=== PATIENT | male | born 1970 | race Caucasian/White ===

== ENCOUNTER 2024-01-08 21:54 | Emergency (ER) | payer OTHER, SELFPAY ==
[2024-01-08 22:01] VITALS: BP 123/86
[2024-01-08 22:08] VITALS: BP 116/90; BMI 24.1
[2024-01-08] MEDS: NSS 1000 IV (22:22)
[2024-01-08] MEDS: LOW STRENGTH ASPIRIN 324 MG PO (22:22)
[2024-01-08 22:24] LABS: % Basophils 0.4 % (0-2); % Eosinophils 1.2 % (0-6); % Immature Granulocytes 0.3 % (0-0.5); % Monocytes 10.9 % (1.7-9.3); % Neutrophils 67.2 % (42.2-75.2); Absolute Basophils 0.1 10^3/uL (0-0.2); Absolute Eosinophils 0.2 10^3/uL (0-0.7); Absolute Immature Granulocytes 0.1 10^3/uL (0-0.05); Absolute Lymphocytes 3.1 10^3/uL (1.2-3.4); Absolute Monocytes 1.7 10^3/uL (0.1-0.6); Absolute Neutrophils 10.5 10^3/uL (1.4-6.5); Hemoglobin 15.1 g/dL (13.0-18.0); Mean Corp Hgb Conc. 35.1 g/dL (33.0-37.0); Mean Corpuscular Hgb 30.6 pg (27.0-31.0); Mean Corpuscular Volume 87.2 fL (80.0-94.0); Nucleated Red Blood Cells % 0 % (-); Platelet Count 368 10^3/uL (130-400); Red Blood Cell Count 4.93 10^6/uL (4.70-6.10); Red Cell Dist. Width 13.1 % (11.5-14.5); White Blood Cell Count 15.7 10^3/uL (4.8-10.8)
[2024-01-08] MEDS: NITROSTAT (SUBLINGUAL) 0.400000000000000022 MG SL ×2 (22:24→22:40)
[2024-01-08 22:25] VITALS: BP 124/88
[2024-01-08] MEDS: HEPARIN 4000 UNITS IV (22:31)
[2024-01-08 22:34] VITALS: BP 108/73
[2024-01-08 22:37] LABS: ALT (SGPT) 21 U/L (0-50); AST (SGOT) 24 U/L (17-59); Albumin 4.2 g/dl (3.5-5.0); Alkaline Phosphatase 63 U/L (38-126); Blood Urea Nitrogen 13 mg/dl (9-20); Calcium 9.4 mg/dl (8.4-10.2); Carbon Dioxide 25 mmol/L (22-30); Chloride 105 mmol/L (98-107); Estimated Creatinine Clearance 101 ml/min; Glucose 108 mg/dl (70-99); Potassium 4.2 mmol/L (3.5-5.1); Sodium 135 mmol/L (135-145); Total Bilirubin 0.8 mg/dl (0.2-1.3); Total Protein 6.6 g/dl (6.3-8.2); eGFR > 60.00
[2024-01-08 22:47] VITALS: BP 114/73
[2024-01-08 22:48] LABS: Troponin I < 0.012 ng/ml
--- NOTE | 2024-01-08 22:52 | EDRN ---
this HARD METALS ENGRAVER HAND spoke with ER Dr Nam and notified her that after 2 SL Nitroglycerin tablets per EMAR order the pts chest pain rating is still 3/10 however his troponin is negative. Per ER Dr Nam verbal order, do not give this pt any more Nitroglycerin
at this time.
[2024-01-08 23:03] LABS: APTT 36.9 Sec (23.4-35.0)
[2024-01-08 23:30] VITALS: BP 128/91
--- NOTE | 2024-01-08 23:43 | ED.GENMED ---
History of Present Illness
General
Chief Complaint: Chest Pain
Source: patient and previous hospital records (Hospitalization October 2021 for persistent chest pain, non-STEMI with peak troponin of 12.2. Underwent PTCA with stent of the RCA.)
Exam Limitations: none
Time Seen by Provider: 01/08/24 22:20
Nursing documentation reviewed up to this point in time: agreed with
Travel History
Have you had any contact with someone who has COVID-19?: No
Do you have any symptoms of coronavirus? Fever > 100 degrees, chills, cough, shortness of breath, sore throat, loss of taste or smell, muscle aches, or headache?: No
History of Present Illness
History of Present Illness:
This is a 53-year-old gentleman with history of CAD who suffered a non-STEMI in October 2021 and underwent PTCA with stent to the right coronary artery at that time. He admits to neglecting follow-up with cardiology with last appointment with .
Vincenzo was perhaps over 1 year ago.
Maintained on metoprolol, atorvastatin, low-dose aspirin and admits to sporadic compliance with this generally taking these 3 times to 4 times per week.
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
with waves of increased pain with certain movements and increased pain with cough. He does admit to rare occasional cough but denies increased cough, no fever no chills, no shortness of breath nor dyspnea on exertion.
He did initially go to work at 7 AM but then returned home within 1 hour due to not feeling well.
He went to his chiropractor today and had an adjustment with improvement in left shoulder pain but chest discomfort persists. He did take 1 sublingual nitroglycerin this morning without relief. He admits that the nitroglycerin was original
prescription from 2021. Prior to today he has never taken nitroglycerin.
He denies leg pain or swelling.
Weight has been stable over the past year with approximately 10 to 20 pound unintentional weight loss 2 years ago.
He denies nausea nor vomiting, no difficulty swallowing, no abdominal nor back pain.
Past History
Past History
ED Past Medical History: CAD, GERD, HTN, Hypercholesterolemia and MA (Non-STEMI October 2021)
ED Past Surgical History: Cardiac (PTCA with stent right coronary artery October 2021)
Social History
Tobacco: Smoker
Alcohol: None
Drug: Marijuana
Personal:
Living: with family
Employment: Employed
Family History
Family History: CAD (Father, ) and Cancer (Mother with history of breast cancer, lung cancer, thyroid cancer)
Phy Exam
Physical Exam
Physical Exam:
GENERAL: 53-year-old gentleman appears his stated age, awake and alert, pleasant, appears in no acute distress. is accompanying. Moderate odor of tobacco about the patient.
EYE: pupils equal and reactive. anicteric
NECK: Supple, nontender, no meningismus, no significant adenopathy.
ENT: oral mucosa is moist. No rhinorrhea.
CARDIAC: Regular rate and rhythm. no murmur.
LUNGS: Clear breath sounds bilaterally, no acute respiratory distress, no wheezes/rales/rhonchi
ABDOMEN: Soft, nondistended, without focal tenderness, no r/g, no cvat. normoactive BS.
NEUROLOGICAL: Alert and oriented x3, no focal neuro deficits.
SKIN: Warm and dry, normal color, skin intact. No rash. Palmar aspects of the hands have moderate chronically embedded dirt.
MUSCULOSKELETAL: No C/C/E. peripheral pulses are full and equal b/l. No palpable tenderness.
PSYCH: Normal and appropriate interaction.
Scores
Heart Score for Chest Pain Patients
STEMI patient?: No
History: Moderately Suspicious
ECG: Normal
Age: >45 - <65 years
Risk Factors: >/= 3 Risk Factors or History of CAD
Troponin: </= Normal Limit
Heart Score for Chest Pain Patients: 4
Heart Score Risk: 20.3% MACE over next 6 weeks
Course
Orders/Labs/Results
Orders:
Orders
01/08/24 21:55
Electrocardiogram (*1) Urgent
Reason for Study: Chest Pain
EKG- Treatment ONCE
01/08/24 22:13
Cardiac Monitoring- Treatment ONCE
01/08/24 22:17
Complete Blood Count/With Diff Urgent
Comprehensive Metabolic Panel Urgent
Troponin I Urgent
01/08/24 22:20
Aspirin Chewable [Low Strength Aspirin] 324 mg .ROUTE .STK-MED ONE
Nitroglycerin Sublingual [Nitrostat (Sublingual)] 0.4 mg .ROUTE .STK-MED ONE
01/08/24 22:21
Aspirin Chewable [Low Strength Aspirin] 324 mg PO NOW STA
Nitroglycerin Sublingual [Nitrostat (Sublingual)] 0.4 mg SL [id number] PRN
01/08/24 22:28
Heparin 4,000 units IV NOW STA
Heparin 5,000 units .ROUTE .STK-MED ONE
01/08/24 22:32
Nitroglycerin Ointment [Nitro-Bid] 1 inch .ROUTE .STK-MED ONE
01/08/24 22:33
0.9% Sodium Chloride 1000 ml [Nss] 1,000 ml IV BOLUS
01/08/24 22:46
PTT Urgent
01/08/24 22:55
CT Chest Pe Study Urgent
Comment:
Reason For Exam: acute SSCP worse w cough
01/08/24 23:45
EKG- Treatment ONCE
01/09/24 00:01
Electrocardiogram (*1) Urgent
Reason for Study: Chest Pain
01/09/24 00:28
Troponin I Urgent
01/09/24 01:14
Ketorolac [Toradol] 15 mg IV NOW STA
Abnormal Lab Results
01/08/24 01/08/24
22:17 22:46
WBC 15.7 H 10^3/uL
(4.8-10.8)
Abs Immat Gran (auto) 0.1 H 10^3/uL
(0-0.05)
Absolute Neuts (auto) 10.5 H 10^3/uL
(1.4-6.5)
Absolute Monos (auto) 1.7 H 10^3/uL
(0.1-0.6)
Lymphocytes % 20.0 L %
(20.5-51.1)
Monocytes % 10.9 H %
(1.7-9.3)
APTT 36.9 H Sec
(23.4-35.0)
Glucose 108 H mg/dl
(70-99)
01/08/24 22:17
01/08/24 22:17
Vital Signs
Initial and Last Documented VS:
Initial Vital Signs
Temp Pulse Resp BP Pulse Ox
98.5 F 78 16 123/86 99
01/08/24 22:01 01/08/24 22:01 01/08/24 22:01 01/08/24 22:01 01/08/24 22:01
Last Documented Vital Signs
Temp Pulse Resp BP Pulse Ox
98.5 F 68 20 123/85 96
01/08/24 22:01 01/09/24 02:15 01/09/24 02:15 01/09/24 02:04 01/09/24 02:15
MDM/Problems Addressed
Differential Diagnosis Includes:
Concern for ACS/unstable angina, other consideration is chest wall pain, GERD, pneumonia, PE.
EKG is similar and unchanged from previous October 20, 2021. No evidence of STEMI.
Labs are pending including troponin.
Will give 324 mg chewable aspirin as well as a sublingual nitroglycerin.
BP is mildly soft thus will initiate IV normal saline bolus.
Chronic conditions affecting care: HTN, CAD and Other (Hyperlipidemia, GERD)
*Radiology
Radiology exam reviewed: radiology read reviewed (CT of the chest/PE study is unremarkable.)
*Pulse Oximetry
Patient hypoxic: no
*EKG
Interpreted by ED Provider?: Yes
Comparison EKG: no changes (Unchanged from previous October 2021)
Rate: normal
Rhythm: sinus
[place]: normal axis
Interval: normal interval
QRS Pattern: normal QRS
Ischemia: other (Minimal early repolarization 2 and aVF, peaked T waves anteriorly, all similar and unchanged from previous October 20, 2021)
*Synthetic Department Supervisor Interpretation
Rate: normal
Interpretation: normal
Rhythm: sinus
*Critical Care Note
Total Time (30-74mins, 75-104mins- exclusive of procedures): Not Applicable
Update Note
Update Note:
Patient reports moderate relief of chest pain after 1 sublingual nitroglycerin. Will continue with additional dose and given IV bolus of heparin.
01/08/2024 22:30 PM
Patient has had no further relief after additional nitroglycerin.
Troponin has returned negative. With ongoing chest pain throughout the day and negative troponin, ACS is less likely but not completely ruled out.
With somewhat pleuritic aspect of chest pain, worse with cough will check CT of the chest/PE study.
Will plan to repeat troponin at midnight.
01/09/[address] of the chest/PE study is unremarkable. No PE nor aneurysm nor dissection.
Troponin is again negative, unchanged.
EKG is similar and unchanged as well.
Patient is pain-free and comfortable after small IV dose of Toradol.
I suspect chest wall pain, other consideration is GERD.
With reassuring/negative troponins will discharge to home with recommendation for prompt follow-up with religion teacher, Dr. Loya. Will refer to our chest pain hotline.
Recommend he continue his regular medications taking these on a daily basis.
Return precautions discussed.
ED Attending Note
-
Portions of this chart may have been created with voice recognition software.� Occasional wrong word or��sound alike� substitutions may have occurred due to the inherent limitations of voice recognition software.
Discharge Plan
Departure
Patient Disposition: Home (Routine Discharge)
Date of Disposition: 01/09/24
Time of Disposition: 02:20
Patient with high blood pressure during this ER visit?: No
Condition: Good
Discharge Problem:
Nonspecific chest pain
Instructions: Chest Pain CBC Follow Up
Prescriptions:
New
nitroglycerin 0.4 mg tablet, sublingual
0.4 mg sublingual Q5-15M PRN (Reason: chest pain) Qty: 20 0RF
No Action
aspirin 81 MG tablet,chewable
81 mg PO DAILY 0RF
metoprolol succinate 25 MG tablet extended release 24 hr
25 mg PO DAILY Qty: 90 5RF
atorvastatin 80 MG tablet
80 mg PO DAILY
Referrals:
Tuan Loya MD [Active] - Call in 1-3 days for appt
Tristan Armenta MD [Family Provider] -
Interventions
Interventions:
*Risk Screen - Suicide Last Done: 01/08/24 22:09
*General Assessment Last Done: 01/08/24 22:09
*Neglect/Abuse Screening Last Done: 01/08/24 22:09
ED- Fall Risk Assessment Last Done: 01/09/24 02:34
*ED COVID-19 Vaccine History Last Done: 01/08/24 22:09
*Nursing Disposition Last Done: 01/09/24 02:34
ED- Cardiac Assessment Last Done: 01/08/24 22:42
Discharge Date and Time
Discharge Date/Time: 01/09/24 02:36
Print Language: NIGERIAN
[2024-01-09] VITALS: BP 114/84
[2024-01-09 00:59] LABS: Troponin I < 0.012 ng/ml
[2024-01-09] MEDS: TORADOL 15 MG IV (01:30)
[2024-01-09 02:04] VITALS: BP 123/85
== END 2024-01-09 02:36 | disposition home or self-care (01) ==
LOC: EMR 21:54
PROVIDERS: EMERGENCY PHYSICIAN Emergency Medicine; FAMILY PHYSICIAN Family Medicine
DX: R07.89 Other chest pain (principal); I25.10 Atherosclerotic heart disease of native coronary artery without angina pectoris; K21.9 Gastro-esophageal reflux disease without esophagitis; I10 Essential (primary) hypertension; E78.00 Pure hypercholesterolemia, unspecified; I25.2 Old myocardial infarction; F17.200 Nicotine dependence, unspecified, uncomplicated; Z80.1 Family history of malignant neoplasm of trachea, bronchus and lung; Z82.49 Family history of ischemic heart disease and other diseases of the circulatory system; Z95.5 Presence of coronary angioplasty implant and graft
CPT/HCPCS: 99284; 96374 ×2; 96361; 71275; 80053; 84484; 85025; 85730; 93005; Q9967

== ENCOUNTER → 2025-04-12 13:10 | Outpatient (REF) | payer BC, SELFPAY | LOC: HWRCS 13:10 | PROVIDERS: ATTENDING PHYSICIAN Nurse Practitioner; FAMILY PHYSICIAN Nurse Practitioner | DX: R06.02 Shortness of breath (principal); I25.10 Atherosclerotic heart disease of native coronary artery without angina pectoris; Z72.0 Tobacco use | CPT/HCPCS: 93306 ==

== ENCOUNTER → 2025-04-16 12:15 | Outpatient (REF) | payer BC, SELFPAY | LOC: HWRCS 12:15 | PROVIDERS: ATTENDING PHYSICIAN Nurse Practitioner; FAMILY PHYSICIAN Nurse Practitioner | DX: R06.02 Shortness of breath (principal); I25.10 Atherosclerotic heart disease of native coronary artery without angina pectoris; Z72.0 Tobacco use | CPT/HCPCS: 78452; 93017; A9500; J2785 ==

== ENCOUNTER → 2025-05-07 11:20 | Outpatient (REF) | payer BC, SELFPAY | LOC: RAD 11:20 | PROVIDERS: ATTENDING PHYSICIAN Internal Medicine Cardiovascular Disease; FAMILY PHYSICIAN Nurse Practitioner | DX: R06.02 Shortness of breath (principal) | CPT/HCPCS: 71046 ==

== ENCOUNTER 2025-05-12 07:16 | Day surgery (SDC) | payer BC, SELFPAY ==
[2025-05-07 10:48] VITALS: BMI 25.6
[2025-05-07 11:31] LABS: Hematocrit 41.4 % (39.0-52.0); Hemoglobin 14.4 g/dL (13.0-18.0); Mean Corp Hgb Conc. 34.8 g/dL (33.0-37.0); Mean Corpuscular Volume 89.8 fL (80.0-94.0); Nucleated Red Blood Cells % 0 % (-); Platelet Count 310 10^3/uL (130-400); Red Cell Dist. Width 12.7 % (11.5-14.5)
[2025-05-07 12:00] LABS: ALT (SGPT) 21 U/L (0-50); AST (SGOT) 23 U/L (17-59); Albumin 4.1 g/dl (3.5-5.0); Alkaline Phosphatase 57 U/L (38-126); Blood Urea Nitrogen 14 mg/dl (9-20); Calcium 9.4 mg/dl (8.4-10.2); Carbon Dioxide 27 mmol/L (22-30); Chloride 106 mmol/L (98-107); Estimated Creatinine Clearance 114 ml/min; Glucose 105 mg/dl (70-99); Potassium 4.8 mmol/L (3.5-5.1); Sodium 137 mmol/L (135-145); Total Protein 6.6 g/dl (6.3-8.2); eGFR > 60.00
--- NOTE | 2025-05-07 13:41 | HPS.HSE ---
Family Physician
-
Family Physician: Deana Mabry
Chief Complaint
-
Coronary artery disease. Shortness of breath. Abnormal stress test.
History of Present Illness
The patient is a 54 year old male with a history of coronary artery disease. He experienced a NSTEMI in October 2021 and ultimately underwent a PCI with RCA stent. His LAD and left circumflex arteries were without significant disease.
Since then, he has had minimal follow-up with cardiology. He does report more recent shortness of breath with exertion. He notices his shortness of breath primarily when chasing after his grandson. He denies chest discomfort. He continues to smoke
approximately 3 packs of cigarettes a week. He reportedly stopped all of his advised cardiac medications at least 1 year ago. He was advised to restart a daily baby Aspirin and Atorvastatin. He did receive a script for sublingual nitroglycerin in
the event chest pain presents. A nuclear stress test on 04/16/2025 revealed a small, partially reversible area of decreased perfusion in the basal to mid inferior and inferolateral perdue, consistent with infarct and haily-infarct ischemia. Given
these results, he will now undergo a left cardiac catheterization for further symptom evaluation. He denies any current complaints today such as chest pain, shortness of breath at rest, nausea, vomiting, diarrhea, lightheadedness, dizziness, cough,
sore throat, or fever.
Medical History
Past Medical History
Past Medical History: Reports Other
Additional Past Medical History:
1. Coronary artery disease/NSTEMI, 10/2021, status post PCI with RCA stent.
2. Hypertension, diet controlled.
3. Hyperlipidemia.
4. Nonsustained ventricular tachycardia.
5. GERD.
6. Colon polyps.
7. Remote headaches.
8. History of medical non-compliance.
9. Current tobacco abuse.
10. Chronic, mild leukocytosis likely secondary to the above.
Past Surgical History: Reports Other
Additional Past Surgical History:
1. PCI with RCA stent.
2. Right ring finger surgery.
3. Colonoscopy.
4. Endoscopy.
Social History
Tobacco: Smoker (He is a current 3 pack per week cigarette smoker. He has been smoking for over 20 years.)
Alcohol: None
Living: Alone (in a 2 story home. His home has a first floor main setup. )
Family History
Family History: Not pertinent
Allergies / Home Medications
Allergy/Medication List:
Home medications:
1. Aspirin 81 mg p.o. daily.
2. Atorvastatin 80 mg p.o. daily.
3. Nitroglycerin 0.4 mg sublingual every 5-15 minutes as needed (maximum 3 doses).
Allergies: No known allergies.
Review of Systems
-
A 12 point ROS was completed and negative except as noted: Yes
Physical Exam
Vital Signs
Blood pressure 118/75. Heart rate 62. Respirations 18. Pulse ox 98% on room air.
Height 5 feet, 7 inches. Weight 74 kg. BMI 25.6.
Physical Exam
General: Well Developed, Well Nourished and No Apparent Distress
HEENT: NormoCephalic, Moist mucous membranes, Atraumatic and PERRLA
Respiratory: Clear
Cardiac: Regular Rhythm
GI: Soft, Non Tender and Non Distended
Musculoskeletal: No Edema and Normal Gait & Station
Skin: Warm and Dry
Neuro: AO x 3 and Nonfocal/grossly intact
Laboratory Results
-
05/07/25 10:52
05/07/25 10:52
Laboratory Results
Total Bilirubin 0.5 mg/dl (0.2-1.3) 05/07/25 10:52
AST 23 U/L (17-59) 05/07/25 10:52
ALT 21 U/L (0-50) 05/07/25 10:52
Alkaline Phosphatase 57 U/L (38-126) 05/07/25 10:52
EKG 05/07/2025: Normal sinus rhythm.
Nuclear stress test 04/16/2025: Small, partially reversible area of decreased perfusion in the basal to mid inferior and inferolateral perdue. Consistent with infarct and haily-infarct ischemia. Inconclusive ECG for ischemia given the pharmacological
study. Systolic function is normal. The ejection fraction is 61%. Stress Risk is moderate risk study (1 - 3% VT or /year) due to pharmacologic agent used.
Echocardiogram 04/12/2025: Normal biventricular size and systolic function without regional wall motion abnormality. Left ventricular ejection fraction is 60%. Mild concentric left ventricular hypertrophy. No significant valvular disease. No change
compared to prior echocardiogram in 2021.
Impression/Plan
-
IMPRESSION/PLAN:
1. Coronary artery disease, shortness of breath, abnormal stress test: The patient is in need of a left cardiac catheterization with Dr. Chacho Staton on 05/12/2025. The benefits and risks of the procedure have been explained to the patient. The
patient understands these risks and wishes to proceed. He is aware to continue his daily baby Aspirin up to and including the morning of his procedure.
2. Current tobacco abuse: Smoking cessation education was provided to the patient pre-operatively. The patient is aware of the adverse cardiovascular effects with continued tobacco use. He reportedly is cutting down on his tobacco use and hopes to
be off tobacco altogether in the near future.
[2025-05-12] VITALS (32 sets, daily range): BP systolic 129–188; BP diastolic 88–118; BMI 25.4
[2025-05-12] MEDS: LOW STRENGTH ASPIRIN 81 MG PO (08:24)
[2025-05-12] MEDS: NSS 221 ML IV (08:25)
[2025-05-12 10:03] LABS: ACT-LR - POC 335 Seconds (116-155)
[2025-05-12 10:25] LABS: ACT-LR - POC 377 Seconds (116-155)
[2025-05-12 10:45] LABS: ACT-LR - POC 332 Seconds (116-155)
--- NOTE | 2025-05-12 10:54 | PTCARENOTE ---
Received pt from procedure room c/o chest pain 5/10 after received NTG spray in procedure room. Pt's blood pressure is 166/99. Dora UNDERWRITING ANALYST aware and ordered to give NTG spray for chest pain as ordered. NTG spray given as ordered.
[2025-05-12] MEDS: NSS 1000 IV (10:55)
--- NOTE | 2025-05-12 10:59 | ITS.CL.ANGIO ---
Fruit Rancher - Angioplasty
Angioplasty
Procedure Report:
CARDIAC CATHETERIZATION REPORT
Date of Procedure: 05/12/2025
Referring: COMPA Wei
INDICATION: New onset/accelerating/unstable angina, known coronary artery disease.
PROCEDURE:
1. Left heart catheterization
2. Coronary angiography.
3. Successful IFR of the proximal/mid LAD.
4. Successful IVUS guided PCI of the proximal/mid LAD.
A total of 64 minutes of procedural/moderate sedation was utilized. An independent medical affairs manager was present to assist with and help manage the patient's level of consciousness and physiologic status.
ACCESS:
1. 6 [place] right radial artery using modified Seldinger technique.
CATHETERS:
1. 5 [place] JR4.
2. 5 [place] JL 3.5.
3. 6 [place] EBU 3.5 guiding catheter.
HEMODYNAMIC DATA
Weight (kg): 73.5
AO (s/d/x, mmHg): 122/79/99
LV (s/x mmHg): 122/14
LEFT VENTRICULOGRAPHY: Not performed.
CORONARY ANGIOGRAPHY
Dominance: Right.
Left Main: Normal size, trifurcating vessel. There is no coronary artery disease.
LAD: Large size vessel giving rise to 1 large diagonal before wrapping around the apex and supplying the distal inferior wall and inferior septum. There is an underappreciated, 50+% lesion in the proximal/mid LAD, spanning the origin of the
diagonal.
[place]: Small to medium size vessel supplying the proximal anterolateral wall. There is no coronary artery disease.
Circumflex: Large size, nondominant vessel giving rise to 1 large obtuse marginal. The obtuse marginal gives rise to several daughter branches and is severely tortuous in its distal margin. There are minor luminal irregularities.
RCA: Normal size, dominant vessel. Patent stents are visible in the proximal vessel. There is no evidence of in-stent restenosis.
INTERVENTION(S)
1. Successful IFR of the 50+% proximal/mid LAD lesion, demonstrating occlusive disease (iFR = 0.88).
2. Successful IVUS guided PCI of the occlusive 50+% proximal/mid LAD lesion (Medtronic [place] 3.5 x 30 AJ, postdilated with a 3.5 NC balloon) with reduction in stenosis to 0%, maintaining KAEL-3 flow.
Narrative:
The decision was made to perform physiologic testing. The diagnostic catheter was removed over a wire and exchanged for a(n) 6 [place] EBU 3.5 guiding catheter. The guiding catheter was advanced into the ascending aorta and seated in the left main
coronary artery. Additional heparin was given to obtain an ACT greater than 250 seconds. An iFR wire was zeroed outside of the body, then inserted into the guiding sheath. The wire was advanced and the transducer was normalized just outside of the
guiding catheter tip. The wire was advanced into the mid LAD, beyond the 50% lesion. Three iFR measurements were taken. The lesion was determined to be occlusive (0.88). Slow pullback was performed to ensure that there was no significant drift.
The wire returned to a normal 1.0 reading at the left main coronary artery/catheter tip, confirming the severity of the stenosis.
The decision was made to perform intracoronary imaging. The IFR wire was disconnected from the console and redirected into the large diagonal for protection. A power turn flex wire was advanced into the distal LAD. An IVUS catheter was advanced
through the guiding catheter and into the ostium of the artery. Ring down was performed once the imaging crystal was no longer inside of the guiding catheter. The IVUS catheter was advanced into the mid LAD, beyond the diseased segment.
Intravascular ultrasound was performed in a retrograde fashion using a slow pullback. Intracoronary imaging demonstrated significant atherosclerosis with a notable, discrete lesion immediately distal to the origin of the first diagonal with plaque
extending into the proximal LAD. This lesion was not well appreciated on angiography. Vessel sizing was performed.
The IVUS catheter was withdrawn and the occlusive proximal/mid LAD lesion was predilated with a 3.0 x 15 noncompliant balloon to 12 katie. The noncompliant balloon was removed and a Medtronic [place] Athelstane 3.5 x 30 drug-eluting stent was advanced. The
stent was deployed at 12 atmospheres. The stent balloon was removed. A 3.5 x 20 noncompliant balloon was advanced into the stent and the stent was postdilated to 15 atmospheres.
the noncompliant balloon was withdrawn and IVUS was repeated. This demonstrated excellent stent apposition throughout the entire stented segment with some mild underexpansion in the midportion. The decision was made to swap the LAD and diagonal
wires and postdilate more aggressively. The power turn flex wire was withdrawn into the proximal stent, however would not advance into the diagonal due to deformation of the wire tip. The wire was withdrawn and a whisper wire was advanced into the
LAD then into the stented segment. The wire was able to easily traverse the stent struts into the diagonal. The IFR wire was then withdrawn from behind the stent struts and redirected into the LAD proper. The 3.5 x 20 noncompliant balloon was
readvanced. The proximal and midportion of the stent were postdilated to 18 katie. The noncompliant balloon was withdrawn.
The patient did complain of some chest discomfort that was likely due to a combination of severe hypertension (systolic blood pressure of 190) and pericardial stretch pain. Angiography had confirmed that there was no vessel occlusion and KAEL-3
flow in all arteries. The patient was given sublingual nitroglycerin with some relief.
Angiography was performed in orthogonal views, confirming good stent expansion and an excellent angiographic result. The coronary wire was withdrawn and the guide was disengaged from the artery. The catheter was removed over a standard J-wire.
Closure Device: Vascular band.
Radiation (mGy): 522.91
DAP (cm2.Gy): 42.6836
Fluoroscopy time (minutes): 17.2
CONCLUSIONS
1. Right dominant circulation with luminal irregularities in the circumflex, patent stents in the proximal RCA with no evidence of ISR and an underappreciated, occlusive 50% proximal/mid LAD lesion (iFR = 0.88) status post successful IVUS guided
PCI (Medtronic [place] 3.5 x 30 AJ, postdilated with a 3.5 NC balloon) with reduction in stenosis to 0%, maintaining KAEL-3 flow.
2. Mildly elevated filling pressures (LVEDP = 14 mmHg at 73.5 kg).
3. Chest discomfort, likely due to combination of severe hypertension and pericardial stretch pain.
RECOMMENDATIONS:
1. Expectant management after cardiac catheterization via right radial approach.
2. Limited weight bearing on the right wrist for one week.
3. Dual antiplatelet therapy with aspirin and clopidogrel for at least 12 months, followed by aspirin indefinitely.
4. Aggressive secondary prevention with high-dose, high potency statin. Goal LDL <55.
5. OMT/GDMT as hemodynamics will tolerate. The patient was quite hypertensive in the Fruit Rancher towards the end of the procedure. Start carvedilol 6.25 mg twice daily.
6. Referral to cardiac rehab.
Copy to: Tuan Loya M.D., COMPA Wei, COMPA Chappell
Chacho Staton DO, FACC, FACP
[2025-05-12] MEDS: NITROLINGUAL SPRAY 1 BOTTLE SL ×2 (11:10→11:15)
[2025-05-12] MEDS: NITROLINGUAL SPRAY SL (11:15)
[2025-05-12] MEDS: COREG 6.25 MG PO (11:37)
--- NOTE | 2025-05-12 11:40 | PTCARENOTE ---
2nd NTG spray given at 1115 as ordered for chest pain rated 4/10. Pt states pain decreased to 2/10 at this time. Pt's blood pressure 167/107. Coreg given as ordered for high blood pressure. Will continue to monitor.
[2025-05-12] MEDS: TYLENOL 650 MG PO (11:41)
--- NOTE | 2025-05-12 13:37 | W.PN.UPDATE ---
Update Note
Progress Note Update
Pt seen post LAD PCI w/1 AJ. Right radial site without ht/bleeding, non tender. Post EKG NSR 63, no vt/arrhythmia, no acute changes. Chest pressure during procedure and after with good reponse to SL NTG x2, now rates pain 0-1/10. BP elevated
160s/100s, with marginal response to NTG. Started carvediolol 6.25mg BID, with good BP lowering effect to 140s/90s. He is comfortable now and chest pain free.
Pt understands importance of uninterrupted DAPT w/asa, plavix. Cardiac rehab consulted. [facility]up at [facility] as scheduled.
Tobacco abuse noted, cessation strongly encouraged. Pt agreeable to Nicoderm patch, 21mg patches sent to pharmacy. Pt understands that for further refills he will need to followup with PCP for management.
Home later today if cath site/tele remain stable.
--- NOTE | 2025-05-12 13:53 | PTCARENOTE ---
Pt's blood pressure is 143/100. Dora PROGRAM DIRECTOR SUBSTANCE ABUSE aware. Pt c/o mild headache 10/12. Tylenol previously given. VSS. No further treatment at this time. Will continue to monitor.
== END 2025-05-12 16:10 | disposition home or self-care (01) ==
LOC: CATH 07:16
PROVIDERS: ATTENDING PHYSICIAN Internal Medicine Cardiovascular Disease; FAMILY PHYSICIAN Nurse Practitioner; OTHER PHYSICIAN Internal Medicine Cardiovascular Disease
DX: I25.110 Atherosclerotic heart disease of native coronary artery with unstable angina pectoris (principal); I10 Essential (primary) hypertension; I25.2 Old myocardial infarction; E78.5 Hyperlipidemia, unspecified; F17.210 Nicotine dependence, cigarettes, uncomplicated; Z79.82 Long term (current) use of aspirin; Z79.899 Other long term (current) drug therapy; Z86.0100 Personal history of colon polyps, unspecified; R51.9 Headache, unspecified; Z91.199 Patient's noncompliance with other medical treatment and regimen due to unspecified reason; D72.829 Elevated white blood cell count, unspecified; I47.20 Ventricular tachycardia, unspecified; K21.9 Gastro-esophageal reflux disease without esophagitis
CPT/HCPCS: 92978; 93799; 99152; 99153; 36415; 80053; 85025; 85347; 93005; 93458; C1725; C1753; C1769; C1874; C1894; C9600; Q9967